=== PATIENT | male | born 1970 | race Caucasian/White ===

== ENCOUNTER 2021-11-02 07:29 | Emergency (ER) | payer MEDICAID ==
[~2021-11-02] VITALS: Ht 170.2 cm; Wt 77.0 kg
[2021-11-02 07:33] VITALS: BP 135/84
[2021-11-02] MEDS ORDERED: LIDOCAINE HCL/EPINEPHRINE 1%-EPI 1:100,000 20 ML VIAL INFIL ONE ×2 (08:30→08:45)
[2021-11-02] MEDS ORDERED: TETANUS, DIPHTHERIA, PERTUSSIS VAC/PF 0.5ML (>10YR OLD) IM ONE (08:45)
== END 2021-11-02 10:08 | disposition home or self-care (01) ==
LOC: ER 08:57
DX: S81.811A Laceration without foreign body, right lower leg, initial encounter (principal); W26.8XXA Contact with other sharp object(s), not elsewhere classified, initial encounter; Y93.89 Activity, other specified; Y92.89 Other specified places as the place of occurrence of the external cause
CPT/HCPCS: 12004; 90471; 90715; 99283; J3490